=== PATIENT | female | born 1970 | race Caucasian/White ===

== ENCOUNTER 2017-05-04 16:29 | Inpatient (IN) | payer OTHER ==
[~2017-05-04] VITALS: Ht 165.1 cm; Wt 46.4 kg
[2017-05-04] MEDS ORDERED: SODIUM CHLORIDE 0.9% 1,000 ML IV SCH (19:47)
[2017-05-04] MEDS ORDERED: HYDROmorphone 1 MG/ML, 1ML IV ONE (20:00)
[2017-05-04] MEDS ORDERED: ONDANSETRON 2MG/ML, 2ML IVPush PRN (20:00)
[2017-05-04] MEDS ORDERED: DOCUSATE 100 MG CAPSULE PO PRN (20:00)
[2017-05-04] MEDS ORDERED: OXYcodone IR 5MG TABLET PO PRN (20:00)
[2017-05-04] MEDS ORDERED: POLYETHYLENE GLYCOL 17 GM PACKET PO PRN (20:00)
[2017-05-04] MEDS ORDERED: PLEASE ENTER HEIGHT AND WEIGHT MC SCH (20:00)
[2017-05-04] MEDS ORDERED: ACETAMINOPHEN 325 MG TABLET PO PRN (20:00)
[2017-05-04 20:24] LABS: ASPARTATE AMINO TRANSFERASE 15 U/L (15-37)
[2017-05-04 20:41] LABS: BLOOD UREA NITROGEN 104 mg/dL (7-18)
[2017-05-04 20:42] LABS: IS PT STATUS REG ER OR PRE ER? NO
[2017-05-04 21:01] VITALS: BP 143/68
[2017-05-04] MEDS: HEPARIN 5,000 UNITS/ML, 1ML SQ SCH (21:36)
[2017-05-04] MEDS ORDERED: SODIUM BICARB 8.4%,50ML SYR. 150 MEQ in DEXTROSE 5% 1,000 ML IV SCH (22:00)
[2017-05-04] MEDS ORDERED: CLOP75TA22 PO (22:16)
[2017-05-04] MEDS ORDERED: FAMO-79 PO (22:16)
[2017-05-04] MEDS ORDERED: DIAZ5ORA PO (22:16)
[2017-05-04] MEDS ORDERED: HYDR1TAB16 PO (22:16)
[2017-05-04] MEDS ORDERED: ONDA4TAB7 PO (22:16)
[2017-05-04] MEDS ORDERED: BROM1.7D9 EACHEYE (22:16)
[2017-05-04] MEDS ORDERED: CHOL400D3 PO (22:16)
[2017-05-04] MEDS ORDERED: [UNRECOGNIZED DRUG - CODE] PO (22:16)
[2017-05-04] MEDS ORDERED: SIMV40TA3 PO (22:16)
[2017-05-04] MEDS ORDERED: TACR1CAP4 PO (22:16)
[2017-05-04] MEDS ORDERED: NITR0.3T5 PO (22:16)
[2017-05-04] MEDS ORDERED: IRON1TAB37 PO (22:16)
[2017-05-04] MEDS ORDERED: ASPI-496 PO (22:16)
[2017-05-04] MEDS ORDERED: PRED5TAB19 PO (22:16)
[2017-05-04] MEDS ORDERED: MYCO250C PO (22:16)
[2017-05-04] MEDS ORDERED: ZOLP10TA PO (22:16)
[2017-05-04] MEDS: HYDROmorphone 2 MG/ML, 1ML IVPush PRN (23:30)
[2017-05-05 01:00] LABS: BLOOD UREA NITROGEN 101 mg/dL (7-18)
[2017-05-05] MEDS: HYDROmorphone 2 MG/ML, 1ML IVPush PRN ×5 (02:42→22:55)
[2017-05-05 04:00] VITALS: BP 94/57
[2017-05-05] MEDS ORDERED: SODIUM ACETATE 150 MEQ in DEXTROSE 5% 1,000 ML IV SCH (04:30)
[2017-05-05] MEDS: HEPARIN 5,000 UNITS/ML, 1ML SQ SCH ×3 (04:44→19:51)
[2017-05-05 04:59] LABS: BLOOD UREA NITROGEN 90 mg/dL (7-18)
[2017-05-05 05:06] LABS: IS PT STATUS REG ER OR PRE ER? NO
[2017-05-05] MEDS: SODIUM ACETATE 150 MEQ in DEXTROSE 5% 1,000 ML IV SCH ×3 (05:18→22:03)
[2017-05-05] MEDS: PANTOPRAZOLE 40 MG IV IVPush SCH (08:27)
[2017-05-05] MEDS: TACROLIMUS 1 MG CAPSULE PO SCH ×2 (08:28→21:11)
[2017-05-05 15:36] LABS: IS PT STATUS REG ER OR PRE ER? NO
[2017-05-05] MEDS ORDERED: PRED5TAB PO (15:50)
[2017-05-05] MEDS ORDERED: TACR1CAP4 PO ×2 (15:50)
[2017-05-05] MEDS ORDERED: MYCO500T3 PO (15:50)
[2017-05-06 04:00] VITALS: BP 110/63
[2017-05-06] MEDS: HEPARIN 5,000 UNITS/ML, 1ML SQ SCH ×3 (04:03→19:41)
[2017-05-06 04:43] LABS: BLOOD UREA NITROGEN 69 mg/dL (7-18)
[2017-05-06 04:47] LABS: ASPARTATE AMINO TRANSFERASE 14 U/L (15-37)
[2017-05-06] MEDS: SODIUM ACETATE 150 MEQ in DEXTROSE 5% 1,000 ML IV SCH (05:16)
[2017-05-06] MEDS: PANTOPRAZOLE 40 MG IV IVPush SCH (07:30)
[2017-05-06] MEDS: SODIUM CHLORIDE 0.9% 1,000 ML IV SCH ×2 (07:57→22:15)
[2017-05-06] MEDS: TACROLIMUS 1 MG CAPSULE PO SCH ×2 (08:17→21:11)
[2017-05-06] MEDS: FAMOTIDINE 20 MG TABLET PO SCH (08:20)
[2017-05-06] MEDS: ZOLPIDEM 10MG TABLET PO PRN (22:29)
[2017-05-06 22:30] LABS: AMYLASE 24HR URINE 143 U/24hrs (59-401)
[2017-05-07] MEDS: HEPARIN 5,000 UNITS/ML, 1ML SQ SCH ×3 (04:49→20:19)
[2017-05-07 04:53] VITALS: BP 138/73
[2017-05-07 05:34] LABS: BLOOD UREA NITROGEN 57 mg/dL (7-18)
[2017-05-07 05:37] LABS: ASPARTATE AMINO TRANSFERASE 20 U/L (15-37)
[2017-05-07] MEDS: FAMOTIDINE 20 MG TABLET PO SCH (08:22)
[2017-05-07] MEDS: TACROLIMUS 1 MG CAPSULE PO SCH ×2 (08:23→20:20)
[2017-05-07 08:29] VITALS: BP 124/79
[2017-05-07] MEDS: SODIUM CHLORIDE 0.9% 1,000 ML IV SCH ×2 (11:21→23:10)
[2017-05-07 14:31] VITALS: BP 122/69
[2017-05-07 19:58] VITALS: BP 112/67
[2017-05-07] MEDS: ZOLPIDEM 10MG TABLET PO PRN (21:57)
[2017-05-08 03:57] VITALS: BP 107/66
[2017-05-08] MEDS: HEPARIN 5,000 UNITS/ML, 1ML SQ SCH ×3 (04:57→20:53)
[2017-05-08 05:02] LABS: ASPARTATE AMINO TRANSFERASE 19 U/L (15-37); BLOOD UREA NITROGEN 62 mg/dL (7-18)
[2017-05-08] MEDS: FAMOTIDINE 20 MG TABLET PO SCH (07:46)
[2017-05-08] MEDS: TACROLIMUS 1 MG CAPSULE PO SCH ×2 (07:47→20:53)
[2017-05-08 08:55] VITALS: BP 144/77
[2017-05-08 14:50] VITALS: BP 105/62
[2017-05-08] MEDS: ZOLPIDEM 10MG TABLET PO PRN (22:08)
[2017-05-09 03:21] VITALS: BP 102/68
[2017-05-09] MEDS: HEPARIN 5,000 UNITS/ML, 1ML SQ SCH (06:09)
[2017-05-09 07:36] VITALS: BP 99/58
[2017-05-09] MEDS: FAMOTIDINE 20 MG TABLET PO SCH (09:02)
[2017-05-09] MEDS: TACROLIMUS 1 MG CAPSULE PO SCH (09:02)
[2017-05-09 09:49] LABS: BLOOD UREA NITROGEN 58 mg/dL (7-18)
[2017-05-09 09:52] LABS: ASPARTATE AMINO TRANSFERASE 21 U/L (15-37)
[2017-05-09 10:17] LABS: DIFF TOTAL CELLS COUNTED 100 CELL DIFF
[2017-05-09 10:22] LABS: VERIFY COUNTS? YES
[2017-05-09 10:29] LABS: ANISOCYTOSIS 1+; OVALOCYTES 1+; POIKILOCYTOSIS 1+
== END 2017-05-09 13:50 | disposition home or self-care (01) | DRG 682 ==
LOC: CCU 18:29 → 3NE 05-06 22:00
PROVIDERS: ADMIT Internal Medicine; ATTEND Family Medicine
DX: N17.0 Acute kidney failure with tubular necrosis (principal); K85.90 Acute pancreatitis without necrosis or infection, unspecified; I12.0 Hypertensive chronic kidney disease with stage 5 chronic kidney disease or end stage renal disease; E87.2 Acidosis; Z94.83 Pancreas transplant status; D68.69 Other thrombophilia; N18.6 End stage renal disease; E87.5 Hyperkalemia; E11.22 Type 2 diabetes mellitus with diabetic chronic kidney disease; E78.5 Hyperlipidemia, unspecified; F32.9 Major depressive disorder, single episode, unspecified; D63.1 Anemia in chronic kidney disease; I25.10 Atherosclerotic heart disease of native coronary artery without angina pectoris; K21.9 Gastro-esophageal reflux disease without esophagitis; Z86.718 Personal history of other venous thrombosis and embolism; Z89.519 Acquired absence of unspecified leg below knee; Z95.1 Presence of aortocoronary bypass graft; Z90.49 Acquired absence of other specified parts of digestive tract; Z98.51 Tubal ligation status; Z88.1 Allergy status to other antibiotic agents; Z79.899 Other long term (current) drug therapy; Z91.19 Patient's noncompliance with other medical treatment and regimen
CPT/HCPCS: 36415; 74176; 76705; 80048; 80053; 80197; 81001; 81050; 82150; 83036; 83690; 83735; 84100; 84484; 85025; 87081; J1170; J1644; J2405; J7070; J7507; C9113; J7030; J7512; J7517

== ENCOUNTER → 2019-04-02 | Outpatient (CLI) | payer OTHER ==
[~2019-04-02] MED LIST: ASPI-496 PO; BROM1.7D9 EACHEYE; CHOL400D3 PO; CLOP75TA52 PO; DIAZ5ORA PO; FAMO-79 PO; HYDR1TAB16 PO; IRON1TAB37 PO; MYCO250C PO; MYCO500T3 PO; NITR0.3T5 PO; ONDA4TAB7 PO; PRED5TAB PO; PRED5TAB19 PO; SIMV40TA3 PO; TACR1CAP4 PO; ZOLP10TA PO; [UNRECOGNIZED DRUG - CODE] PO
== END | disposition home or self-care (01) ==
LOC: CVU 07:53
PROVIDERS: ATTEND Internal Medicine Cardiovascular Disease
DX: I65.23 Occlusion and stenosis of bilateral carotid arteries (principal); E78.2 Mixed hyperlipidemia; Z95.1 Presence of aortocoronary bypass graft
CPT/HCPCS: 93306; 93880